=== PATIENT | female | born 1980 | race Caucasian/White ===

== ENCOUNTER 2019-07-11 04:20 | Emergency (ER) | payer OTHER ==
[~2019-07-11] VITALS: Ht 160 cm; Wt 71.2 kg
[2019-07-11] MEDS ORDERED: IV RINGERS SOLUTION,LACTATED 1,000 ML IV SCH (04:23)
--- NOTE | 2019-07-11 04:23 | ED.ADGEN ---
Past History Past Medical History: DVT, GERD, Other Past Medical History Non-Hodgkin's lymphoma, chemotherapy 2003 Past Surgical History: Past Surgical History Biopsy, central line port, �5 Adult General Chief Complaint Chief Complaint "..I woke up with this epigastric.. and central chest pain about 1:30.. I thought it was reflux .. so I took gas x .. but it has not helped..." HPI HPI Patient is a 39 year old female who presents with above hx and complaints of chest pain, and epigastric pain. Patient denies any history of tarry stools. Did eat shrimp sandwiches before going to bed last night. No recent travel. No specific ill contacts. Patient has significant history for non-Hodgkin's lymph eitan and treatment with chemotherapy. Patient denies any trauma. She rates her pain 7 out of 10. Onset occurred at approximately 1:30 this morning which caused her awaking from sleep. Patient has history of DVT and pulmonary embolism which is her main concern this morning. Patient denies any history of cardiac disorder. The patient normally follows at [facility]. Review of Systems Review of Systems Constitutional: Denies fever or chills [] Eyes: Denies change in visual acuity, redness, or eye pain [] HENT: Denies nasal congestion or sore throat [] Respiratory: Denies cough or shortness of breath [] Cardiovascular: No additional information not addressed in HPI [] GI: Complaints of epigastric abdominal pain, nausea. Denies, vomiting, bloody stools or diarrhea [] : Denies dysuria or hematuria [] Musculoskeletal: Denies back pain or joint pain [] Integument: Denies rash or skin lesions [] Neurologic: Denies headache, focal weakness or sensory changes [] Endocrine: Denies polyuria or polydipsia [] All other systems were reviewed and found to be within normal limits, except as documented in this note. Family History Family History Noncontributory Current Medications Current Medications Current Medications Medications (Trade) Dose Ordered Sig/Glen Start Time Stop Time Status Last Admin Dose Admin Aspirin (Children'S Aspirin) 324 mg 1X ONCE 07/11/19 04:30 07/11/19 05:15 DC 07/11/19 05:13 324 MG Famotidine (Pepcid Vial) 20 mg 1X ONCE 07/11/19 06:00 07/11/19 06:16 DC 07/11/19 06:24 20 MG Lactated Ringer's 1,000 ml @ 1,000 mls/hr Q1H 07/11/19 04:23 07/11/19 05:22 DC 07/11/19 05:13 1,000 MLS/HR Magnesium Hydroxide (Milk Of Magnesia) 2,400 mg 1X ONCE 07/11/19 06:00 07/11/19 06:16 DC 07/11/19 06:24 2,400 MG Allergies Allergies Allergies Coded Allergies Type Severity Reaction Last Updated Verified No Known Drug Allergies 07/11/19 No Physical Exam Physical Exam Constitutional: Moderate acute distress, non-toxic appearance. [] HENT: Normocephalic, atraumatic, bilateral external ears normal, oropharynx m oist, no oral exudates, nose normal. [] Eyes: PERRLA, EOMI, conjunctiva normal, no discharge. [] Neck: Normal range of motion, no tenderness, supple, no stridor. [] Cardiovascular: Tachycardia Heart rate regular rhythm, no murmur [] Lungs & Thorax: Bilateral breath sounds equal at apex auscultation []old biopsy scar and port scar. Abdomen: Bowel sounds normal, soft, right upper quadrant and epigastric tenderness, no masses, no pulsatile masses. [] No true rebound. Skin: Warm, dry, no erythema, no rash. [] Back: No tenderness, no CVA tenderness. [] Extremities: No tenderness, no cyanosis, no clubbing, ROM intact, no edema. [] No psoas sign. No cording appreciated in legs. Neurologic: Alert and oriented X 3, normal motor function, normal sensory function, no focal deficits noted. [] Psychologic: Affect anxious, judgement normal, mood normal. [] Current Patient Data Vital Signs Vital Signs Date Time Temp Pulse Resp B/P (MAP) Pulse Ox O2 Delivery O2 Flow Rate FiO2 07/11/19 06:23 98.2 83 20 107/62 (77) 98 Room Air Lab Results Laboratory Tests Test 07/11/19 04:30 07/11/19 04:45 07/11/19 05:01 Urine Collection Type Void Urine Color Straw Urine Clarity Clear Urine pH 6.0 Urine Specific [place] 1.015 Urine Protein Neg (NEG-TRACE) Urine Glucose (UA) Neg mg/dL (NEG) Urine Ketones (Stick) Neg mg/dL (NEG) Urine Blood Neg (NEG) Urine Nitrite Neg (NEG) Urine Bilirubin Neg (NEG) Urine Urobilinogen Dipstick 0.2 mg/dL (0.2 mg/dL) Urine Leukocyte Esterase Neg (NEG) Urine RBC 0 /HPF (0-2) Urine WBC 0 /HPF (0-4) Urine Squamous Epithelial Cells Few /LPF Urine Bacteria Few /HPF (0-FEW) Urine Opiates Screen Neg (NEG) Urine Methadone Screen Neg (NEG) Urine Barbiturates Neg (NEG) Urine Phencyclidine Screen Neg (NEG) Urine Amphetamine/Methamphetamine Neg (NEG) Urine Benzodiazepines Screen Neg (NEG) Urine Cocaine Screen Neg (NEG) Urine Cannabinoids Screen Neg (NEG) Urine Ethyl Alcohol Neg (NEG) White Blood Count 7.8 x10^3/uL (4.0-11.0) Red Blood Count 4.81 x10^6/uL (3.50-5.40) Hemoglobin 13.2 g/dL (12.0-15.5) Hematocrit 39.6 % (36.0-47.0) Mean Corpuscular Volume 82 fL (79-100) Mean Corpuscular Hemoglobin 28 pg (25-35) Mean Corpuscular Hemoglobin Concent 34 g/dL (31-37) Red Cell Distribution Width 15.3 % (11.5-14.5) H Platelet Count 421 x10^3/uL (140-400) H Neutrophils (%) (Auto) 67 % (31-73) Lymphocytes (%) (Auto) 23 % (24-48) L Monocytes (%) (Auto) 8 % (0-9) Eosinophils (%) (Auto) 2 % (0-3) Basophils (%) (Auto) 1 % (0-3) Neutrophils # (Auto) 5.2 x10^3uL (1.8-7.7) Lymphocytes # (Auto) 1.7 x10^3/uL (1.0-4.8) Monocytes # (Auto) 0.6 x10^3/uL (0.0-1.1) Eosinophils # (Auto) 0.1 x10^3/uL (0.0-0.7) Basophils # (Auto) 0.0 x10^3/uL (0.0-0.2) Prothrombin Time 9.3 SEC (9.4-11.4) L Prothrombin Time INR 0.9 (0.9-1.1) Activated Partial Thromboplast Time 26 SEC (23-33) D-Dimer (Irma) 0.42 mg/L (0.00-0.50) Sodium Level 140 mmol/L (136-145) Potassium Level 3.5 mmol/L (3.5-5.1) Chloride Level 102 mmol/L (98-107) Carbon Dioxide Level 26 mmol/L (21-32) Anion Gap 12 (6-14) Blood Urea Nitrogen 11 mg/dL (7-20) Creatinine 0.8 mg/dL (0.6-1.0) Estimated GFR (Cockcroft-Gault) 80.3 Glucose Level 115 mg/dL (70-99) H Calcium Level 8.9 mg/dL (8.5-10.1) Magnesium Level 2.0 mg/dL (1.8-2.4) Total Bilirubin 0.1 mg/dL (0.2-1.0) L Direct Bilirubin 0.1 mg/dL (0.0-0.2) Aspartate Amino Transferase (AST) 13 U/L (15-37) L Alanine Aminotransferase (ALT) 20 U/L (14-59) Alkaline Phosphatase 93 U/L (46-116) Creatine Kinase 97 U/L (26-192) Troponin I Quantitative < 0.017 ng/mL (0-0.055) KJ-Iok-B-Type Natriuretic Peptide 45 pg/mL (0-124) Total Protein 7.8 g/dL (6.4-8.2) Albumin 3.7 g/dL (3.4-5.0) Lipase 153 U/L (73-393) POC Urine HCG, Qualitative hcg negative (Negative) EKG EKG Dilatation EKG shows a sinus rhythm at 90 bpm. There is some left axis changes. Some nonspecific anterior lateral findings. But no findings acute STEMI with contralateral changes.[] Radiology/Procedures Radiology/Procedures [address] [address] IMAGING REPORT Signed PATIENT: GRACIELA RODGERS ACCOUNT: [id number] : 1980 LOCATION: ER AGE: 39 SEX: F EXAM STATUS: REG ER ORD. PHYSICIAN: ALEX MARSH MD REASON: Epigastic pain x 5 hours. Neg HCG PROCEDURE: ACUTE ABDOMEN SERIES PA chest and AP upright supine abdomen x-rays HISTORY: Epigastric abdominal pain. FINDINGS: Heart size normal. Left superhilar upper lobe heterogeneous focal 5 cm opacity or mass. No pneumoperitoneum. There is a moderate volume of stool throughout the colon. Pelvic calcifications, presumably phleboliths. No dilated small bowel loops or abnormal air-fluid levels. IMPRESSION: 1. 5 cm left suprahilar upper lobe focal opacity could represent round pneumonia or lung malignancy. 2. Moderate volume of stool may represent constipation. Electronically signed by: Johana Juan MD (07/11/2019 6:24 AM) [facility] DICTATED AND SIGNED BY: JOHANA JUAN MD DATE: 07/11/19623 CC: ALEX MARSH MD; PCP,UNKNOWN ~ [][place] [address] IMAGING REPORT Signed PATIENT: GRACIELA RODGERS ACCOUNT: [id number] : 1980 LOCATION: ER AGE: 39 SEX: F EXAM STATUS: REG ER ORD. PHYSICIAN: ALEX MARSH MD REASON: Epigastic pain x 5 hours. Neg HCG PROCEDURE: ACUTE ABDOMEN SERIES PA chest and AP upright supine abdomen x-rays HISTORY: Epigastric abdominal pain. FINDINGS: Heart size normal. Left superhilar upper lobe heterogeneous focal 5 cm opacity or mass. No pneumoperitoneum. There is a moderate volume of stool throughout the colon. Pelvic calcifications, presumably phleboliths. No dilated small bowel loops or abnormal air-fluid levels. IMPRESSION: 1. 5 cm left suprahilar upper lobe focal opacity could represent round pneumonia or lung malignancy. 2. Moderate volume of stool may represent constipation. Electronically signed by: Johana Juan MD (07/11/2019 6:24 AM) [facility] DICTATED AND SIGNED BY: JOHANA JUAN MD DATE: 07/11/19623 CC: ALEX MARSH MD; PCP,UNKNOWN ~ Course & Med Decision Making Course & Med Decision Making Pertinent Labs and Imaging studies reviewed. (See chart for details) Patient is started on Pepcid 20 mg a day and Carafate 4 times a day. Patient return of any concerns. Consider EGD. Patient follow-up primary care- [facility]. Get old films and compare to current. If new lesion in Lt. upper lung, or changes will need CT and Bx. MUST BE FOLLOW UP. [] Final Impression Final Impression 1. Chest Pain 2. Hx GERD[] 3. History of non-Hodgkin's lymphoma with chemotherapy 2003 4. History of DVT and pulmonary embolism-associated with Non- Hodgkin's lymphoma 5. Lt. Upper lobe 5 cm Nodule/Scar??(- MUST BE COMPARED TO FILMS IN MARCH) 6. Constipation. Dragon Disclaimer Dragon Disclaimer This electronic medical record was generated, in whole or in part, using a voice recognition dictation system. Dragon Disclaimer This chart was dictated in whole or in part using Voice Recognition software in a busy, high-work load, and often noisy Emergency Department environment. It may contain unintended and wholly unrecognized errors or omissions. Dragon Disclaimer This chart was dictated in whole or in part using Voice Recognition software in a busy, high-work load, and often noisy Emergency Department environment. It may contain unintended and wholly unrecognized errors or omissions. ALEX MARSH MD Jul 11, 2019 04:23
[2019-07-11] MEDS ORDERED: ASPIRIN 81 MG TAB.CHEW PO ONE (04:30)
--- NOTE | 2019-07-11 04:35 | EKG ---
[address] [address] Test Date: 2019-07-11 Test Time: 04:30:34 Pat Name: GRACIELA RODGERS Department: Room: Gender: F Termite Helper: : 1980 Requested By: ALEX MARSH Order Number: [id number] Reading MD: Measurements Intervals Anton Rate: 98 P: 90 WA: 130 QRS: -16 QRSD: 116 T: 62 QT: 364 QTc: 467 Interpretive Statements SINUS RHYTHM LEFTWARD AXIS R-S TRANSITION ZONE IN V LEADS DISPLACED TO THE LEFT QRS(T) CONTOUR ABNORMALITY CONSIDER ANTEROLATERAL MYOCARDIAL DAMAGE POSSIBLY ABNORMAL ECG RI6.01 No previous ECG available for comparison
[2019-07-11 05:26] LABS: BASO % 1 % (0-3); EOS # 0.1 x10^3/uL (0.0-0.7); EOS % 2 % (0-3); HEMATOCRIT 39.6 % (36.0-47.0); HEMOGLOBIN 13.2 g/dL (12.0-15.5); LYMPH # 1.7 x10^3/uL (1.0-4.8); LYMPH % 23 % (24-48); MEAN CORPUSCULAR HEMOGLOBIN 28 pg (25-35); MEAN CORPUSCULAR HGB CONC 34 g/dL (31-37); MEAN CORPUSCULAR VOLUME 82 fL (79-100); MONO # 0.6 x10^3/uL (0.0-1.1); MONO % 8 % (0-9); NEUT # 5.2 x10^3uL (1.8-7.7); NEUT % 67 % (31-73); PLATELET COUNT 421 x10^3/uL (140-400); RED BLOOD COUNT 4.81 x10^6/uL (3.50-5.40); RED CELL DISTRIBUTION WIDTH 15.3 % (11.5-14.5); WHITE BLOOD COUNT 7.8 x10^3/uL (4.0-11.0)
[2019-07-11 05:34] LABS: ALBUMIN 3.7 g/dL (3.4-5.0); CALCIUM 8.9 mg/dL (8.5-10.1); CREATININE 0.8 mg/dL (0.6-1.0); DIRECT BILIRUBIN 0.1 mg/dL (0.0-0.2); GFR 80.3; POTASSIUM 3.5 mmol/L (3.5-5.1); TOTAL BILIRUBIN 0.1 mg/dL (0.2-1.0); TOTAL PROTEIN 7.8 g/dL (6.4-8.2)
[2019-07-11 05:34] LABS: BARBITURATES NEG (NEG); BENZODIAZEPINES NEG (NEG); BILIRUBIN,URINE NEG (NEG); CANNABINOIDS NEG (NEG); CLARITY,URINE CLEAR; COCAINE NEG (NEG); COLOR,URINE STRAW; GLUCOSE,URINE NEG (NEG); METHADONE NEG (NEG); OPIATES NEG (NEG); PHENCYCLIDINE NEG (NEG)
[2019-07-11 05:35] LABS: BACTERIA,URINE FEW /HPF (0-FEW); NITRITE,URINE NEG (NEG); RBC,URINE 0 /HPF (0-2); SQUAMOUS EPITHELIAL CELL,UR FEW /LPF; UROBILINOGEN,URINE 0.2 mg/dL (0.2 mg/dL); WBC,URINE 0 /HPF (0-4)
[2019-07-11 05:40] LABS: AMPHETAMINE/METHAMPHETAMINE NEG (NEG)
[2019-07-11] MEDS ORDERED: MAGNESIUM HYDROXIDE 2,400 MG/30 ML ORAL.SUSP. PO ONE (06:00)
[2019-07-11] MEDS ORDERED: FAMOTIDINE 20 MG/2 ML VIAL IVP ONE (06:00)
[2019-07-11] MEDS ORDERED: SUCR1TAB35 PO (06:01)
[2019-07-11] MEDS ORDERED: FAMO-63 PO (06:01)
[2019-07-11] MEDS ORDERED: ONDA8TAB9 PO (06:01)
[2019-07-11 06:23] VITALS: BP 107/62
--- NOTE | 2019-07-11 06:27 | RAD ---
PA chest and AP upright supine abdomen x-rays HISTORY: Epigastric abdominal pain. FINDINGS: Heart size normal. Left superhilar upper lobe heterogeneous focal 5 cm opacity or mass. No pneumoperitoneum. There is a moderate volume of stool throughout the colon. Pelvic calcifications, presumably phleboliths. No dilated small bowel loops or abnormal air-fluid levels. IMPRESSION: 1. 5 cm left suprahilar upper lobe focal opacity could represent round pneumonia or lung malignancy. 2. Moderate volume of stool may represent constipation. Electronically signed by: Jose Maria Juan MD (07/11/2019 6:24 AM) [id number]
[2019-07-11 11:05] LABS: THYROID STIM HORMONE (TSH) 8.932 uIU/mL (0.358-3.740)
== END 2019-07-11 06:33 | disposition home or self-care (01) ==
LOC: ER 04:20
DX: R07.89 Other chest pain (principal); K59.00 Constipation, unspecified; K21.9 Gastro-esophageal reflux disease without esophagitis; Z85.72 Personal history of non-Hodgkin lymphomas; Z86.718 Personal history of other venous thrombosis and embolism; Z86.711 Personal history of pulmonary embolism; Z98.890 Other specified postprocedural states
CPT/HCPCS: 36415; 74022; 80048; 80061; 80076; 80307; 81001; 81025; 82550; 83690; 83735; 83880; 84443; 84484; 85025; 85379; 85610; 85730; 93005; 96374; 99285; J3490; J7120

== ENCOUNTER → 2019-07-16 | Outpatient (CLI) | payer OTHER ==
[2019-07-11 06:23] VITALS: BP 107/62
[~2019-07-16] MED LIST: FAMO-63 PO; ONDA8TAB9 PO; SUCR1TAB35 PO
[2019-07-16] MEDS: IOHEXOL 300 MG/ML 75 ML VIAL. IV ONE (08:57)
--- NOTE | 2019-07-16 09:27 | RAD ---
Examination: CT CHEST W/CONTRAST History: Non-Hodgkin's lymphoma, lung nodule on x-ray exam Comparison/Correlation: 07/11/2019 PA view of the chest and abdomen supine and upright series Findings: Axial images of the chest were obtained following IV contrast. Sagittal and coronal reformatted images were provided. Left suprahilar traction bronchiectasis is noted. Elevation of the major fissure is notable with left upper lung volume loss. There is no mass lesion. No enlarged thoracic lymph nodes. No pleural effusion or pneumothorax. Linear scarring or atelectasis involving the right lateral apex is noted. Partially visualized upper abdomen is unremarkable. Bony structures are unremarkable. At the lateral left upper breast posteriorly on axial image 42 of series 5, there is suggestion of a mass measuring up to 1.6 cm transverse by 1.1 cm anteroposterior by 0.8 cm longitudinal. It is well-circumscribed with Hounsfield units of 30. Impression: Left upper lobe suprahilar traction bronchiectasis. No pulmonary mass. Left lateral breast mass is suspected. Correlation with bilateral diagnostic mammogram and left breast ultrasound recommended. PQRS Compliance Statement: One or more of the following individualized dose reduction techniques were utilized for this examination: 1. Automated exposure control 2. Adjustment of the mA and/or kV according to patient size 3. Use of iterative reconstruction technique Electronically signed by: Thomas Hatfield MD (07/16/2019 9:24 AM) [facility]
== END | disposition home or self-care (01) ==
LOC: CT 08:37
PROVIDERS: ATTEND Registered Nurse
DX: C85.90 Non-Hodgkin lymphoma, unspecified, unspecified site (principal); J47.9 Bronchiectasis, uncomplicated
CPT/HCPCS: 71260; Q9967

== ENCOUNTER → 2019-07-24 | Outpatient (CLI) | payer OTHER ==
[2019-07-11 06:23] VITALS: BP 107/62
--- NOTE | 2019-07-24 19:48 | RAD ---
DATE: 07/24/2019 EXAM: MAMMO [place], BREAST LEFT HISTORY: Mass involving the left breast seen on CT exam. Non-Hodgkin's lymphoma. COMPARISON: CT chest without contrast 07/16/2019 This study was interpreted with the benefit of Computerized Aided Detection (CAD). Breast Density: HETERO The breast parenchyma is heterogenously dense, which could reduce sensitivity of mammography. Breast parenchyma level C. FINDINGS: Calcification cluster involving the right posterior upper outer breast is present. Calcifications are smoothly marginated. No additional calcification cluster is evident. These calcifications are 6.5 cm from the nipple. At the posterior left upper MLO view, there is a mass present. It is not fully imaged in its posterior margin. A fatty hilum is not definitely demarcated. Limited ultrasound imaging of the left breast was performed. There is an ovoid hypoechoic slightly heterogeneous mass at the 2:00 region 9 cm from the nipple measuring 1.7 cm x 1.1 cm x 0.7 cm tall. No flow definitely seen within it. IMPRESSION: Indeterminate right breast calcifications and left breast mass. BI-RADS CATEGORY: 4 SUSPICIOUS ABNORMALITY- BIOPSY SHOULD BE CONSIDERED RECOMMENDED FOLLOW-UP: BIO BIOPSY RECOMMENDED. Ultrasound-guided core biopsy of left breast mass is to be considered. The right breast calcifications were not imaged under ultrasound to assess for the possibility of biopsy of these calcifications under ultrasound. If at the time of the left breast mass biopsy these calcifications can be seen on ultrasound, then biopsy may be performed. Otherwise, stereotactic core biopsy should be considered. PQRS compliance statement: Patient information was entered into a reminder system with a target due date for the next mammogram. Mammography is a sensitive method for finding small breast cancers, but it does not detect them all and is not a substitute for careful clinical examination. A negative mammogram does not negate a clinically suspicious finding and should not result in delay in biopsying a clinically suspicious abnormality. "Our facility is accredited by the [employer] Mammography Program."
== END | disposition home or self-care (01) ==
LOC: MAMMO 13:30
PROVIDERS: ATTEND Registered Nurse
DX: N63.20 Unspecified lump in the left breast, unspecified quadrant (principal)
CPT/HCPCS: 76641; 77066; G0279; 77062

== ENCOUNTER → 2019-12-11 | Outpatient (CLI) | payer OTHER ==
--- NOTE | 2019-12-11 17:38 | RAD ---
US PELVIS W/TV History: Irregular menstruation Comparison: None. Technique: Grayscale and color Doppler imaging of the pelvis was performed using transabdominal and transvaginal technique. Findings: The uterus measures 10.2 x 6.5 x 5.3 cm in length. Uterus has an unremarkable appearance. The endometrial stripe measures 1.6 cm, upper limits of normal for secretory phase. Right ovary measures 3.3 x 1.9 x 1.8 cm. Left ovary measures 2.5 x 2.0 x 1.5 cm. No adnexal masses are seen. IMPRESSION: 1. Unremarkable pelvic ultrasound. Electronically signed by: Stevan Garcia DO (12/11/2019 5:35 PM) [id number]
== END | disposition home or self-care (01) ==
LOC: US 15:00
PROVIDERS: ATTEND Registered Nurse
DX: N92.0 Excessive and frequent menstruation with regular cycle (principal)
CPT/HCPCS: 76830; 76856